=== PATIENT | female | born 1985 | race Two or more races ===

== ENCOUNTER 2024-08-11 14:53 | Emergency (ER) | payer MEDICAID, SELFPAY ==
[2024-08-11 14:53] VITALS: BMI 29.2
[2024-08-11 15:21] VITALS: BP 128/87; PULSE 90; RESP 18; TEMP 37.2; O2SAT 100
--- NOTE | 2024-08-11 15:30 | EKG_ITS ---
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
--- NOTE | 2024-08-11 15:30 | XR_ITS ---
Examination: PA lateral chest 2 views TECHNIQUE: Upright PA lateral chest 2 views Exam date and time: August 11, 2024 1544 hours INDICATIONS: Chest pain shortness of breath beginning 3 months ago. FINDINGS: Normal heart size Lungs are clear. The osseous structures are intact IMPRESSION: No active disease
--- NOTE | 2024-08-11 15:30 | PD.EDRME ---
Rapid Medical Screening Exam E Arrival date/time: 08/11/24 14:53 38-year-old female with no known medical history presents to the emergency room with a chief complaint of intermittent near syncopal episodes. Patient states in the last month she has had 3 near syncopal episodes and the latest one was 1 hour ago. Patient states she she begins to feel very dizzy, lightheaded and begins having chest tightness. I have greeted and performed a focused initial assessment of this patient. A comprehensive ED assessment and evaluation of the patient, analysis of all test results, and completion of the medical decision making process will be conducted by additional ED providers. Chief Complaint: Syncope / Near Syncope Time Seen by Provider: 08/11/24 15:25 Vital signs: Vital Signs Temperature 98.9 F 08/11/24 15:21 Pulse Rate 90 08/11/24 15:21 Respiratory Rate 18 08/11/24 15:21 Blood Pressure 128/87 H 08/11/24 15:21 Pulse Oximetry (%) 100 08/11/24 15:21 Oxygen Delivery Method Room Air 08/11/24 15:21 Vital signs reviewed by provider: Yes
[2024-08-11 16:38] LABS: Basophils # (Auto) 0.1 Thou/mm3 (0.0-0.2); Basophils % (Auto) 1 % (0-2.5); Eosinophils # (Auto) 2.3 Thou/mm3 (0.0-0.5); Eosinophils % (Auto) 26 % (0-10); Hematocrit 39.5 % (36.0-46.0); Hemoglobin 13.2 g/dL (12.0-16.0); Immature Granulocytes % (Auto) 0 % (0-0); Immature Granulocytes Auto 0.01 Thou/mm3 (0.00-0.00); Lymphocytes # (Auto) 3.2 Thou/mm3 (1.0-4.8); Lymphocytes % (Auto) 36 % (10-50); Mean Corpuscular HGB Conc 33.4 g/dl (31.0-37.0); Mean Corpuscular Hemoglobin 28.9 pg (25.0-35.0); Mean Corpuscular Volume 87 fL (80-100); Monocytes # (Auto) 0.3 Thou/mm3 (0.0-0.8); Monocytes % (Auto) 3 % (0-12); Neutrophils # (Auto) 3.1 Thou/mm3 (1.8-7.7); Neutrophils % (Auto) 34 % (37-80); Nucleated Red Blood Cell % 0 /100 WBC (0); Platelet Count 291 Thou/mm3 (140-440); RDW Standard Deviation 41.4 fL (36.4-46.3); Red Blood Count 4.56 Miln/mm3 (4.00-5.20)
[2024-08-11 17:02] LABS: B-Type Natriuretic Peptide < 20 pg/mL (0-100)
[2024-08-11 17:06] LABS: Alanine Aminotransferase 11 U/L (10-49); Albumin, Serum 4.6 gm/dL (3.5-5.0); Albumin/Globulin Ratio 1.6 (1.2-2.2); Alkaline Phosphatase 62 U/L (46-116); Anion Gap 6 (7-16); Aspartate Amino Transferase 15 U/L (0-34); BUN/Creatinine Ratio 11 Ratio (12-20); Bilirubin,Total 0.4 mg/dL (0.3-1.2); Blood Urea Nitrogen 8 mg/dL (9-23); Calcium 9.2 mg/dL (8.3-10.6); Calcium (Corrected) 9.2 mg/dL (8.5-10.1); Carbon Dioxide 25.3 mMol/L (20.0-31.0); Chloride 110 mMol/L (98-107); Creatinine (Component) 0.7 mg/dL (0.6-1.3); Estimated Creatinine Clearance 94.7 mL/min (>60); Free T4 (Free Thyroxine) 1.25 ng/dL (0.89-1.76); Globulin 2.9 gm/dL (2.3-3.5); Glucose 99 mg/dL (74-106); Magnesium 1.8 mg/dL (1.6-2.6); Osmolality,Calculated 279 (275-295); Potassium 3.3 mMol/L (3.4-5.1); Sodium 141 mMol/L (136-145); Thyroid Stimulating Hormone 1.43 uIU/mL (0.55-4.78); Total Protein 7.5 gm/dL (5.7-8.2); Troponin I < 0.002 ng/mL (0.0-0.045); eGFR > 60 See Note
[2024-08-11 19:35] VITALS: BP 120/81; PULSE 81; RESP 18; TEMP 36.9; O2SAT 100
--- NOTE | 2024-08-11 20:39 | PD.EDADULT ---
ED General RME/HPI General Chief complaint: Syncope / Near Syncope Stated complaint: NEAR SYNCOPE Time Seen by Provider: 08/11/24 15:25 Arrival date/time: 08/11/24 14:53 RME / HPI RME / HPI narrative: 38-year-old female with no known medical history presents to the emergency room with a chief complaint of intermittent near syncopal episodes. Patient states in the last month she has had 3 near syncopal episodes and the latest one was 1 hour ago. Patient states she she begins to feel very dizzy, lightheaded and begins having chest tightness. Patient denies any other complaints patient is ambulatory. Related Data Home Medications ?Medication ?Instructions ?Recorded ?Confirmed vitamins-iron fumarate 27 1 tab PO QDAY 11/12/19 11/12/19 mg iron-folic acid 0.8 mg tablet ( Vitamin) Allergies Allergy/AdvReac Type Severity Reaction Status Date / Time No Known Allergies Allergy Unverified 08/11/24 20:41 Review of Systems Review of Systems Narrative Review of Systems: Review of system reviewed and within normal limits except mentioned in HPI ED Exam Narrative Physical exam: VITAL SIGNS: Reviewed. GENERAL APPEARANCE: Alert and interactive, follows commands, no acute distress, HEAD AND FACE: Non-traumatic. ENT: PERRL, pink conjunctivitis, eyelid no trauma, Mucous membrane moist. NECK: Supple, nontender, no nuchal rigidity. CHEST: No tenderness, no crepitus, no paradoxical movement, no retractions. LUNGS: Clear, well ventilated, symmetric, no rales, no wheezing, no ronchi, no stridor, good breath sounds bilaterally. HEART: Regular rate, regular rhythm, no murmur, no gallops. ABDOMEN: Soft, positive bowel sounds, nondistended, no guarding, nontender, no rebound, no masses, RECTAL: Deferred. GENITAL: Deferred. NEUROLOGICAL: Gross motor function intact sensory function intact, Appropriate for age. MUSCULOSKELETAL: low back nontender, full range of motion. EXTREMITIES: Nontender, full range of motion. SKIN: Color pink, dry, no rash, no lacerations, no abrasions, no contusions. LYMPHATICS: Deferred. Course Quality Measures none Orders Category Date Time Status EKG (ED ONLY) *Do not use* NOW Care 08/11/24 15:30 Completed EKG (ED Only) Stat Exams 08/11/24 15:30 Draft XR chest 2V Stat Exams 08/11/24 15:30 Taken B-Type Natriuretic Peptide Stat Lab 08/11/24 16:05 Completed CBC Stat Lab 08/11/24 16:05 Completed Comprehensive Metabolic Panel Stat Lab 08/11/24 16:05 Completed Free T4 (Free Thyroxine) Stat Lab 08/11/24 16:05 Completed Magnesium Stat Lab 08/11/24 16:05 Completed TSH [Thyroid Stimulating Hormone] Stat Lab 08/11/24 16:05 Completed Troponin I Stat Lab 08/11/24 16:05 Completed Acetaminophen Tab [Tylenol ES Tab] Med 08/11/24 20:38 Once 1,000 mg PO X1 ONE Potassium Chloride [K-Dur] Med 08/11/24 20:38 Once 40 meq PO X1 ONE Vital Signs Vital signs: Vital Signs Temperature 98.9 F 08/11/24 15:21 Pulse Rate 90 08/11/24 15:21 Respiratory Rate 18 08/11/24 15:21 Blood Pressure 128/87 H 08/11/24 15:21 Pulse Oximetry (%) 100 08/11/24 15:21 Oxygen Delivery Method Room Air 08/11/24 15:21 Discharge Plan Plan Patient Disposition: HOME (Self Care) Disposition Comment: Stable Prescriptions/Referrals Prescriptions/Med Rec: No Action Vitamin 27 mg iron- 0.8 mg Tablet 1 tab PO QDAY Referrals: Poonam Vasquez FNP-C [Primary Care Provider] - In 1 week Problem List Clinical Impression: Vasovagal syncope Patient/Caregiver Discharge Instructions Discharge Activity: activity as tolerated Education Materials: Understanding Vasovagal Syncope Additional Instructions: Thank you for the opportunity for serving you today. You are stable for discharged . You are advised to: Follow-up with your PCP in 1 to 2 days Return to ED for worsening of symptoms Increase oral fluids Print Language: Sinhala Stand Alone Forms: Salud Award Info., Patient Portal Info Letter DERRICK/STANTON Supervising Physician DERRICK/STANTON Supervising Physician: MD Dm [facility] Patient Acuity Narrative: 38-year-old female with no known medical history presents to the emergency room with a chief complaint of intermittent near syncopal episodes. Patient states in the last month she has had 3 near syncopal episodes and the latest one was 1 hour ago. Patient states she she begins to feel very dizzy, lightheaded and begins having chest tightness. Patient denies any other complaints patient is ambulatory. Patient's workup today all came back unremarkable except for potassium 3.3. EKG showed sinus rhythm, ventricular rate of 91 bpm, no ST segment elevation depression noted. Chest x-ray showed no acute pathology. No recurrence of minor syncope noted in the ED. Patient appears nontoxic and hemodynamically stable. Patient discharged home and instructed to follow-up with primary care provider in 24 to 48 hours. Instructed to return to the emergency department immediately if worsening of symptoms
[2024-08-11] MEDS: ACETAMINOPHEN 500 MG TABLET 1000 MG PO (20:58)
[2024-08-11] MEDS: POTASSIUM CHLORIDE 20 mEq TABCR 40 MEQ PO (20:58)
== END 2024-08-11 21:02 | disposition home or self-care (01) ==
PROVIDERS: Nurse Practitioner Family; Emergency Provider Emergency Medicine; PCP Nurse Practitioner Family
DX: R55 Syncope and collapse (principal)
CPT/HCPCS: 36415; 71046; 80053; 83735; 83880; 84439; 84443; 84484; 85025; 93005; 99283; A9270